=== PATIENT | female | born 1990 | race Caucasian/White ===

== ENCOUNTER 2022-02-09 07:26 | Inpatient (IN) | payer MEDICAID ==
[2022-02-09] MEDS ORDERED: Celecoxib 200 MG Cap PO ONE (08:00)
[2022-02-09] MEDS ORDERED: Acetaminophen 500 MG Tab PO ONE (08:00)
[2022-02-09] MEDS ORDERED: Scopolamine 1.5 MG Transdermal Patch TOP SCH (08:00)
[2022-02-09] MEDS ORDERED: fentaNYL 250 MCG/5 ML SDV ONE ×2 (08:40→11:17)
[2022-02-09] MEDS ORDERED: Rocuronium 50 MG/5 ML Vial ONE (08:41)
[2022-02-09] MEDS ORDERED: Ondansetron 4 MG/2 ML SDV ONE (08:41)
[2022-02-09] MEDS ORDERED: Succinylcholine 200 MG/10 ML MDV ONE (08:41)
[2022-02-09] MEDS ORDERED: Propofol 200 MG/20 ML SDV ONE (08:41)
[2022-02-09] MEDS ORDERED: Dexamethasone 4 MG/ML SDV ONE (08:41)
[2022-02-09] MEDS ORDERED: Glycopyrrolate 0.2 MG/ML 5 ML MDV ONE (08:41)
[2022-02-09] MEDS ORDERED: Neostigmine Methylsulfate 1 MG/ML 5 ML Syringe ONE (08:41)
[2022-02-09] MEDS ORDERED: Lactated Ringers 1,000 ML ONE (08:43)
[2022-02-09 08:52] LABS: HEMOGLOBIN A1C 5.8 % (4.5-6.2)
[2022-02-09] MEDS ORDERED: Dextrose 5%-Lactated Ringers 1,000 ML IV SCH ×2 (09:00→14:15)
[2022-02-09] MEDS ORDERED: cefOXitin 2 GM in Sodium Chloride 0.9% 50 ML IV ONE (09:30)
[2022-02-09] MEDS ORDERED: Ketamine 17 MG in Sodium Chloride 0.9% 19.83 ML IV SCH (09:30)
[2022-02-09] MEDS ORDERED: Albuterol/Ipratropium 3.0-0.5 MG/3 ML Neb Soln NEB ONE (09:30)
[2022-02-09] MEDS ORDERED: Ketamine 500 MG/5 ML MDV IV SCH (09:30)
[2022-02-09] MEDS ORDERED: Oxymetazoline 0.05% Nasal Spray 30 ML Bottle ONE (11:26)
[2022-02-09] MEDS: cefOXitin 2 GM Vial ONE ×2 (11:47→12:18)
[2022-02-09] MEDS ORDERED: Labetalol 20 MG/4 ML Syringe ONE (11:52)
[2022-02-09] MEDS ORDERED: Sugammadex Sodium 200 MG/2 ML VIAL ONE (12:52)
[2022-02-09] MEDS ORDERED: fentaNYL 100 MCG/2 ML SDV IVPUSH ONE (13:19)
[2022-02-09] MEDS ORDERED: hydrOXYzine HCL 100 MG/2 ML SDV IM ONE (13:19)
[2022-02-09] MEDS ORDERED: Cyclobenzaprine 10 MG Tab PO PRN (14:16)
[2022-02-09] MEDS: Albuterol/Ipratropium 3.0-0.5 MG/3 ML Neb Soln INH SCH ×2 (14:30→20:34)
[2022-02-09] MEDS ORDERED: HYDROmorphone 0.5 MG/0.5 ML Syringe IVPUSH PRN (15:00)
[2022-02-09] MEDS ORDERED: oxyCODONE 5 MG Tab PO PRN (15:00)
[2022-02-09] MEDS ORDERED: hydrOXYzine HCL 100 MG/2 ML SDV IM PRN (15:00)
[2022-02-09] MEDS ORDERED: Labetalol 20 MG/4 ML Syringe IVPUSH PRN (15:00)
[2022-02-09] MEDS ORDERED: diphenhydrAMINE 50 MG/ML SDV IVPUSH PRN (15:00)
[2022-02-09] MEDS ORDERED: Albuterol/Ipratropium 3.0-0.5 MG/3 ML Neb Soln INH PRN (15:00)
[2022-02-09] MEDS ORDERED: Metoclopramide 10 MG/2 ML SDV IVPUSH PRN (15:00)
[2022-02-09] MEDS ORDERED: Acetaminophen 500 MG Tab PO PRN (15:00)
[2022-02-09] MEDS ORDERED: HYDROmorphone 1 MG/ML Syringe IV PRN (15:00)
[2022-02-09] MEDS: Ondansetron 4 MG/2 ML SDV IVPUSH PRN ×2 (15:59→23:39)
[2022-02-09] MEDS ORDERED: Pantoprazole 40 MG Vial IVPUSH SCH (16:00)
[2022-02-09] MEDS: cefOXitin 2 GM in Sodium Chloride 0.9% 50 ML IV SCH ×2 (16:07→22:59)
[2022-02-09] MEDS: MVI, Adult with Vitamin K 10 ML, Thiamine 200 MG, Zinc/Copper/Manganese/Selenium 1 ML i... IV SCH ×4 (16:07)
[2022-02-09] MEDS: Acetaminophen 500 MG Tab PO SCH ×2 (16:14→23:00)
[2022-02-09] MEDS: Heparin Sodium 5,000 Units/ML Vial SUBCUT SCH (17:15)
[2022-02-09] MEDS: traMADol 50 MG Tab PO PRN (19:11)
[2022-02-09] MEDS: Labetalol 100 MG Tab PO SCH (20:32)
[2022-02-10] MEDS ORDERED: Iopamidol 612 MG/ML 50 ML SDV PO STA (03:47)
[2022-02-10] MEDS: cefOXitin 2 GM in Sodium Chloride 0.9% 50 ML IV SCH ×4 (04:13→21:14)
[2022-02-10] MEDS: Heparin Sodium 5,000 Units/ML Vial SUBCUT SCH ×2 (05:06→17:05)
[2022-02-10] MEDS: Albuterol/Ipratropium 3.0-0.5 MG/3 ML Neb Soln INH SCH ×4 (07:29→21:14)
[2022-02-10] MEDS ORDERED: Ondansetron 4 MG Tab.DIS PO PRN (07:33)
[2022-02-10] MEDS: Dextrose 5%-Lactated Ringers 1,000 ML IV SCH (07:49)
[2022-02-10] MEDS: Acetaminophen 500 MG Tab PO SCH ×3 (07:56→23:11)
[2022-02-10] MEDS: traMADol 50 MG Tab PO PRN ×2 (07:57→13:59)
[2022-02-10] MEDS: SCOPOLAMINE PATCH CHECK TOP SCH (09:58)
[2022-02-10] MEDS: Labetalol 100 MG Tab PO SCH ×2 (09:58→21:15)
[2022-02-10] MEDS: Celecoxib 200 MG Cap PO SCH ×2 (09:58→21:15)
[2022-02-10] MEDS ORDERED: Pantoprazole 40 MG Delayed-Release Granules 1 Packet PO SCH (16:00)
[2022-02-10] MEDS: MVI, Adult with Vitamin K 10 ML, Thiamine 200 MG, Zinc/Copper/Manganese/Selenium 1 ML i... IV SCH ×4 (16:20)
[2022-02-11] MEDS: Heparin Sodium 5,000 Units/ML Vial SUBCUT SCH (05:32)
[2022-02-11] MEDS: Dextrose 5%-Lactated Ringers 1,000 ML IV SCH (05:49)
[2022-02-11] MEDS: Albuterol/Ipratropium 3.0-0.5 MG/3 ML Neb Soln INH SCH (07:03)
[2022-02-11] MEDS: Acetaminophen 500 MG Tab PO SCH (08:01)
[2022-02-11] MEDS: Celecoxib 200 MG Cap PO SCH (08:02)
[2022-02-11] MEDS: Labetalol 100 MG Tab PO SCH (08:03)
[2022-02-11] MEDS: SCOPOLAMINE PATCH CHECK TOP SCH (08:03)
[2022-02-11] MEDS ORDERED: Cyanocobalamin (Vitamin B12) 1,000 MCG/ML SDV IM ONE (09:00)
== END 2022-02-11 10:45 | disposition home or self-care (01) | DRG 621 ==
LOC: JP.SDS 07:51 → EDSTATUS 08:45 → JP.MS 12:30
PROVIDERS: ADMIT Surgery; ATTEND Surgery
PROC: 0D164ZA Bypass Stomach to Jejunum, Percutaneous Endoscopic Approach (ICD-10-PCS; principal; 2022-02-09)
PROC: 0BQT4ZZ Repair Diaphragm, Percutaneous Endoscopic Approach (ICD-10-PCS; 2022-02-09)
PROC: 0FB24ZX Excision of Left Lobe Liver, Percutaneous Endoscopic Approach, Diagnostic (ICD-10-PCS; 2022-02-09)
DX: E66.01 Morbid (severe) obesity due to excess calories (principal); Z68.43 Body mass index [BMI] 50.0-59.9, adult; G47.33 Obstructive sleep apnea (adult) (pediatric); R16.0 Hepatomegaly, not elsewhere classified; K44.9 Diaphragmatic hernia without obstruction or gangrene; Z90.49 Acquired absence of other specified parts of digestive tract; Z87.891 Personal history of nicotine dependence
CPT/HCPCS: 36415; 74240; 74240-26; 80053; 82947; 83036; 83735; 84100; 84703; 85027; 86850; 86900; 86901; 88307; 88313; 94640; A9270-GY; C9113; J0171; J0330; J0694; J1100; J1644; J2405; J2704; J2710; J2765; J2795; J3010; J3410; J3411; J3420; J3490; J7030; J7120; J7121; J7620; Q9967